=== PATIENT | female | born 1980 | race Two or more races ===

== ENCOUNTER 2020-05-30 11:15 | Inpatient (IN) | payer MEDICAID, OTHER ==
[~2020-05-30] VITALS: Ht 160 cm; Wt 87.6 kg
[2020-05-30] MEDS ORDERED: SODIUM CHLORIDE 0.9% 1,000 ML IV ONE ×2 (11:45)
[2020-05-30 12:01] LABS: Hematocrit 36.6 % (36.0-46.0); Hemoglobin 11.5 g/dL (12.2-16.2); Mean Corpuscular Hemoglobin 21.3 pg (28.0-32.0); Mean Corpuscular Hgb Conc. 31.4 g/dL (32.0-36.0); Red Cell Distribution Width 18.6 % (11.8-14.3)
[2020-05-30 12:02] LABS: Mean Corpuscular Volume 67.7 fL (80.0-100.0); Platelet Count (auto) 120 10^3/uL (140-450); White Blood Cell 10.3 10^3/uL (4.4-10.8)
[2020-05-30 12:05] LABS: Basophils % (manual) 0 (0.0-2.0); Blast Cells 0; Eosinophils % (manual) 0 (0-7); Myelocytes % 0; Promyelocytes % 0
[2020-05-30 12:20] LABS: Albumin 2.6 g/dL (3.4-5.0); Anion Gap 13 (5-15); Blood Urea Nitrogen 18 mg/dL (7-18); Carbon Dioxide 19 mmol/L (21-32); Chloride 101 mmol/L (98-107); Glucose 324 mg/dL (74-106); Potassium 3.1 mmol/L (3.5-5.1); Sodium 133 mmol/L (136-145)
[2020-05-30 12:26] LABS: Alanine Aminotransferase 26 U/L (13-56); Alkaline Phosphatase 414 U/L (45-117); Aspartate Aminotransferase 34 U/L (15-37); BUN/Creatinine Ratio 14.6; Bilirubin, Total 0.5 mg/dL (0.2-1.0); GFR African American 63 mL/min; GFR Non-African American 52 mL/min; Total Protein 7.1 g/dL (6.4-8.2)
[2020-05-30 12:44] LABS: Band Neutrophils % (manual) 24; Lymphocytes % (manual) 3 (10.0-50.0); Metamyelocytes % 2; Monocytes % (manual) 1 (0-12); Reactive Lymphocytes 17
[2020-05-30] MEDS ORDERED: KETOROLAC TROMETH 30 MG/ML 1ML VIAL ONE (14:11)
[2020-05-30] MEDS ORDERED: KETOROLAC TROMETH 30 MG/ML 1ML VIAL IV ONE (14:30)
[2020-05-30] MEDS ORDERED: DexAMETHasone SOD PHOS 10MG/1ML VIAL INJ IV ONE (15:45)
[2020-05-30] MEDS ORDERED: ENOXAPARIN SOD 100 MG/1 ML SYRINGE SC ONE (15:45)
[2020-05-30] MEDS ORDERED: DOXYCYCLINE 100MG/250ML 250 ML IV ONE (15:45)
[2020-05-30] MEDS ORDERED: MORPHINE SULF INJ 2 MG/ML SYRINGE 1ML IV PRN ×2 (16:00→16:15)
[2020-05-30] MEDS ORDERED: NITROGLYCERIN 0.4 MG SL TAB SL PRN ×2 (16:00→16:15)
[2020-05-30] MEDS ORDERED: DEXTROSE (50%) 50ML SYRG IV PRN (16:00)
[2020-05-30] MEDS ORDERED: LACTATED RINGER'S 1,000 ML IV ONE (16:00)
[2020-05-30] MEDS ORDERED: SIMV10TA84 PO (16:02)
[2020-05-30] MEDS ORDERED: GLIP10TA9 PO (16:02)
[2020-05-30] MEDS ORDERED: BENA5TAB5 PO (16:02)
[2020-05-30] MEDS ORDERED: ERGO1CAP12 PO (16:02)
[2020-05-30] MEDS ORDERED: METF-929 PO (16:02)
[2020-05-30] MEDS ORDERED: ONDANSETRON HCL 4 MG/2 ML VIAL IV PRN (16:15)
[2020-05-30] MEDS ORDERED: INFLUENZA QUAD 2020-2021 0.5 ML SYRG IM ONE (16:15)
[2020-05-30] MEDS ORDERED: ALUM & MAG HYDROX-SIMETH LIQ(MAALOX) 30 ML PO PRN (16:15)
[2020-05-30] MEDS ORDERED: PNEUMOCOCCAL VACC POLYS 25 MCG/0.5 ML VIAL IM ONE (16:15)
[2020-05-30] MEDS ORDERED: SODIUM CHLORIDE 0.9% 1,000 ML IV SCH (16:15)
[2020-05-30] MEDS ORDERED: POTASSIUM CHL 20 Meq TABLET PO ONE (16:15)
[2020-05-30] MEDS ORDERED: REMDESIVIR PER PHARMACY 0 ML IV SCH (16:15)
[2020-05-30] MEDS ORDERED: POTASSIUM CHL 20MEQ/100ML 100 ML IV ONE (16:15)
[2020-05-30] MEDS ORDERED: ACETAMINOPHEN 500 MG TAB PO PRN (16:15)
[2020-05-30] MEDS ORDERED: LORazepam 0.5 MG TAB PO PRN (16:15)
[2020-05-30] MEDS ORDERED: IOHEXOL 350 MG/ML 100ML IJ ONE (16:19)
[2020-05-30] MEDS: ACCU-CHEK COMFORT CURVE STRIP VI SCH ×2 (17:00→23:06)
[2020-05-30] MEDS ORDERED: cefTRIAXone 1GM/50ML D5W 50 ML IV ONE ×2 (17:00→17:05)
[2020-05-30] MEDS: InsuLIN REG 1unit/0.01ml Soln (100units/ml) SC SCH ×2 (17:00→23:07)
[2020-05-30] MEDS ORDERED: AZITHROMYCIN 500MG/ 250ML 250 ML IV ONE (18:00)
[2020-05-30] MEDS ORDERED: SODIUM FERR GLUC 62.5MG/5ML 125 MG in SODIUM CHL 0.9% 100 ML IV ONE (20:00)
[2020-05-30] MEDS ORDERED: METOPROLOL TARTRATE 25 MG TAB PO ONE (20:00)
[2020-05-30] MEDS ORDERED: REMDESIVIR 200 MG in NS 210ml LOADING DOSE ADULT IV ONE (21:30)
[2020-05-30] MEDS: ALBUTEROL SULF HFA 90MCG INH 200DOSE IN PRN (21:30)
[2020-05-30] MEDS: BUDESONIDE (INHALATION) 180 MCG IH IN SCH (21:30)
[2020-05-30 21:57] LABS: Basophils # (auto) 0 10 ^3/uL (0-0.2); Basophils % (auto) 0.1 % (0.0-2.0); Eosinophils # (auto) 0 10 ^3/uL (0-0.8); Lymphocytes # (auto) 0.2 10 ^3/uL (0.4-5.4); Lymphocytes % (auto) 1.1 % (10.0-50.0); Neutrophils # (auto) 14.8 10 ^3/uL (1.6-8.6); White Blood Cell 15.3 10^3/uL (4.4-10.8)
[2020-05-30 21:59] LABS: Eosinophils % (auto) 0.2 % (0.0-7.0); Hematocrit 33.4 % (36.0-46.0); Hemoglobin 10.5 g/dL (12.2-16.2); Mean Corpuscular Hemoglobin 21.1 pg (28.0-32.0); Mean Corpuscular Hgb Conc. 31.5 g/dL (32.0-36.0); Monocytes # (auto) 0.2 10 ^3/uL (0-1.3); Monocytes % (auto) 1.6 % (0.0-12.0); Platelet Count (auto) 132 10^3/uL (140-450); Red Blood Cells 4.99 10^6/uL (4.0-5.20); Red Cell Distribution Width 18.5 % (11.8-14.3)
[2020-05-30] MEDS ORDERED: DOXYCYCLINE 100MG/250ML 250 ML IV SCH (22:00)
[2020-05-30 22:14] LABS: Albumin 2.7 g/dL (3.4-5.0); Anion Gap 12 (5-15); Blood Urea Nitrogen 19 mg/dL (7-18); Calcium 7.8 mg/dL (8.5-10.1); Carbon Dioxide 18 mmol/L (21-32); Chloride 104 mmol/L (98-107); Potassium 3.9 mmol/L (3.5-5.1); Sodium 134 mmol/L (136-145)
[2020-05-30 22:17] LABS: Lactic Acid w/Reflex 2.1 mmol/L (0.4-2.0)
[2020-05-30 22:20] LABS: % Iron Saturation 2.8 % (15-50)
[2020-05-30 22:24] LABS: Alanine Aminotransferase 28 U/L (13-56); Alkaline Phosphatase 258 U/L (45-117); Aspartate Aminotransferase 37 U/L (15-37); BUN/Creatinine Ratio 19.6; Bilirubin, Total 0.3 mg/dL (0.2-1.0); GFR African American 83 mL/min; GFR Non-African American 68 mL/min; Glucose 377 mg/dL (74-106); Lactate Dehydrogenase 328 U/L (84-246); Total Protein 7.3 g/dL (6.4-8.2)
[2020-05-30 22:30] LABS: CRP High Sensitivity > 19.0 mg/dL (< 0.3)
[2020-05-30 22:32] LABS: Cholesterol 99 mg/dL (< 200); HDL Cholesterol 31 mg/dL (40-59); LDL Cholesterol 48 mg/dL (< 100); Triglycerides 125 mg/dL (< 150)
[2020-05-30 22:53] LABS: Urine Bacteria MANY /hpf (None Seen); Urine Blood TRACE /uL (Negative); Urine Specific Gravity 1.035 (1.001-1.035); Urine WBC 176 /hpf (0 - 5); Urine WBC Clumps PRESENT /hpf (None Seen)
[2020-05-30 22:58] LABS: Alcohol, Urine < 3.0 mg/dL (0-10); Amphetamine Screen, Urine NEGATIVE (NEGATIVE); Barbiturate Scree,Urine NEGATIVE (NEGATIVE); Benzodiazephine Screen, Urine NEGATIVE (NEGATIVE); Cannabinoid Screen, Urine NEGATIVE (NEGATIVE); Cocaine Screen, Urine NEGATIVE (NEGATIVE); Opiate Scree,Urine NEGATIVE (NEGATIVE); Phencyclidine Screen, Urine NEGATIVE (NEGATIVE)
[2020-05-30 23:05] VITALS: BP 96/63
[2020-05-30] MEDS: ATORVASTATIN 20 MG TAB PO SCH (23:10)
[2020-05-30] MEDS: MORPHINE SULF INJ 2 MG/ML SYRINGE 1ML IV PRN (23:11)
[2020-05-31] MEDS: DOCUSATE SOD 100 MG CAP PO PRN (00:48)
[2020-05-31] MEDS: HYDROcodone-ACET 5/325MG TAB PO PRN (00:48)
[2020-05-31 05:00] VITALS: BP 98/61
[2020-05-31 05:49] LABS: Lymphocytes # (auto) 0.4 10 ^3/uL (0.4-5.4); Monocytes # (auto) 0.4 10 ^3/uL (0-1.3)
[2020-05-31 05:51] LABS: Basophils # (auto) 0.2 10 ^3/uL (0-0.2); Basophils % (auto) 1.1 % (0.0-2.0); Eosinophils # (auto) 0.2 10 ^3/uL (0-0.8); Eosinophils % (auto) 1.5 % (0.0-7.0); Hematocrit 31.9 % (36.0-46.0); Hemoglobin 9.9 g/dL (12.2-16.2); Lymphocytes % (auto) 2.7 % (10.0-50.0); Mean Corpuscular Hemoglobin 20.8 pg (28.0-32.0); Mean Corpuscular Hgb Conc. 31.1 g/dL (32.0-36.0); Monocytes % (auto) 2.7 % (0.0-12.0); Neutrophils # (auto) 12.6 10 ^3/uL (1.6-8.6); Platelet Count (auto) 112 10^3/uL (140-450); Red Blood Cells 4.76 10^6/uL (4.0-5.20); Red Cell Distribution Width 18.4 % (11.8-14.3); White Blood Cell 13.7 10^3/uL (4.4-10.8)
[2020-05-31 06:11] LABS: Potassium 3.7 mmol/L (3.5-5.1)
[2020-05-31 06:20] LABS: Albumin 2.2 g/dL (3.4-5.0); BUN/Creatinine Ratio 23.1; Bilirubin, Total 0.4 mg/dL (0.2-1.0); Calcium 7.4 mg/dL (8.5-10.1); Total Protein 6.6 g/dL (6.4-8.2)
[2020-05-31] MEDS: InsuLIN REG 1unit/0.01ml Soln (100units/ml) SC SCH ×4 (06:27→21:41)
[2020-05-31] MEDS: ACCU-CHEK COMFORT CURVE STRIP VI SCH ×4 (06:27→21:42)
[2020-05-31] MEDS: BUDESONIDE (INHALATION) 180 MCG IH IN SCH ×2 (07:05→20:15)
[2020-05-31] MEDS: ALBUTEROL SULF HFA 90MCG INH 200DOSE IN PRN ×2 (07:05→20:15)
[2020-05-31 09:00] VITALS: BP 107/67
[2020-05-31] MEDS ORDERED: LISINOPRIL 5 MG TAB PO SCH (10:00)
[2020-05-31] MEDS ORDERED: METOPROLOL TARTRATE 25 MG TAB PO SCH (10:00)
[2020-05-31] MEDS: MORPHINE SULF INJ 2 MG/ML SYRINGE 1ML IV PRN ×2 (10:39→17:57)
[2020-05-31] MEDS: DexAMETHasone SOD PHOS 10MG/1ML VIAL INJ IV SCH (10:53)
[2020-05-31] MEDS: ZINC SULFATE 220mg CAP or TAB PO SCH (10:54)
[2020-05-31] MEDS: ASPirin 81 mg TAB PO SCH (10:54)
[2020-05-31] MEDS: CHOLECALCIFEROL (VITD3) 2,000 UNIT CAP PO SCH (10:56)
[2020-05-31] MEDS: ASCORBIC ACID 1,000 MG TAB PO SCH (10:56)
[2020-05-31] MEDS: ENOXAPARIN SOD 100 MG/1 ML SYRINGE SC SCH ×2 (10:57→21:42)
[2020-05-31] MEDS: POTASSIUM CHL 20 Meq TABLET PO SCH (11:00)
[2020-05-31] MEDS ORDERED: REMDESIVIR PER PHARMACY 0 ML IV SCH (11:30)
[2020-05-31 13:00] VITALS: BP 100/60
[2020-05-31] MEDS: SODIUM FERR GLUC 62.5MG/5ML 125 MG in SODIUM CHL 0.9% 100 ML IV SCH (14:54)
[2020-05-31] MEDS: REMDESIVIR 100 MG in SODIUM CHL 0.9% 250 ML IV SCH (16:26)
[2020-05-31 16:47] VITALS: BP 102/62
[2020-05-31] MEDS: cefTRIAXone 1GM/50ML D5W 50 ML IV SCH (20:04)
[2020-05-31 21:00] VITALS: BP 108/61
[2020-05-31] MEDS: AZITHROMYCIN 500MG/ 250ML 250 ML IV SCH (21:41)
[2020-05-31] MEDS: ATORVASTATIN 20 MG TAB PO SCH (21:41)
[2020-05-31] MEDS: INSULIN LANTUS (GLARGINE) 1 /0.01ml (100units/ml) SC SCH (21:42)
[2020-06-01] VITALS (7 sets, daily range): BP systolic 99–116; BP diastolic 68–79
[2020-06-01] MEDS: MORPHINE SULF INJ 2 MG/ML SYRINGE 1ML IV PRN (05:05)
[2020-06-01 05:56] LABS: Basophils # (auto) 0 10 ^3/uL (0-0.2); Basophils % (auto) 0.2 % (0.0-2.0); Eosinophils # (auto) 0 10 ^3/uL (0-0.8); Hemoglobin 10.5 g/dL (12.2-16.2); Lymphocytes # (auto) 0.6 10 ^3/uL (0.4-5.4); Lymphocytes % (auto) 4.2 % (10.0-50.0); Mean Corpuscular Hemoglobin 20.7 pg (28.0-32.0); Mean Corpuscular Hgb Conc. 30.8 g/dL (32.0-36.0); Mean Corpuscular Volume 67.1 fL (80.0-100.0); Monocytes # (auto) 0.9 10 ^3/uL (0-1.3); Monocytes % (auto) 5.8 % (0.0-12.0); Neutrophils # (auto) 13.2 10 ^3/uL (1.6-8.6); Neutrophils % (auto) 89.8 % (37.0-80.0); Platelet Count (auto) 149 10^3/uL (140-450); Red Blood Cells 5.06 10^6/uL (4.0-5.20); Red Cell Distribution Width 19.1 % (11.8-14.3); White Blood Cell 14.7 10^3/uL (4.4-10.8)
[2020-06-01 05:59] LABS: Lactic Acid w/Reflex 2.8 mmol/L (0.4-2.0)
[2020-06-01] MEDS: ACCU-CHEK COMFORT CURVE STRIP VI SCH ×4 (06:17→21:42)
[2020-06-01 06:18] LABS: Calcium 7.8 mg/dL (8.5-10.1); Potassium 3.4 mmol/L (3.5-5.1)
[2020-06-01] MEDS: INSULIN LANTUS (GLARGINE) 1 /0.01ml (100units/ml) SC SCH ×2 (06:26→21:38)
[2020-06-01] MEDS: InsuLIN REG 1unit/0.01ml Soln (100units/ml) SC SCH ×4 (06:27→21:36)
[2020-06-01] MEDS: DexAMETHasone SOD PHOS 10MG/1ML VIAL INJ IV SCH (09:24)
[2020-06-01] MEDS: ENOXAPARIN SOD 100 MG/1 ML SYRINGE SC SCH ×2 (09:25→21:25)
[2020-06-01] MEDS: ASPirin 81 mg TAB PO SCH (09:26)
[2020-06-01] MEDS: CHOLECALCIFEROL (VITD3) 2,000 UNIT CAP PO SCH (09:26)
[2020-06-01] MEDS: POTASSIUM CHL 20 Meq TABLET PO SCH (09:26)
[2020-06-01] MEDS: HYDROcodone-ACET 5/325MG TAB PO PRN (09:28)
[2020-06-01] MEDS: LISINOPRIL 5 MG TAB PO SCH (09:28)
[2020-06-01] MEDS: ZINC SULFATE 220mg CAP or TAB PO SCH (09:28)
[2020-06-01] MEDS: ASCORBIC ACID 1,000 MG TAB PO SCH (09:29)
[2020-06-01] MEDS: BUDESONIDE (INHALATION) 180 MCG IH IN SCH ×2 (10:00→19:08)
[2020-06-01] MEDS ORDERED: POTASSIUM CHL 20 Meq TABLET PO ONE (12:45)
[2020-06-01] MEDS ORDERED: SODIUM CHLORIDE 0.9% 1,000 ML IV ONE (12:45)
[2020-06-01] MEDS: SODIUM FERR GLUC 62.5MG/5ML 125 MG in SODIUM CHL 0.9% 100 ML IV SCH (13:10)
[2020-06-01] MEDS: REMDESIVIR 100 MG in SODIUM CHL 0.9% 250 ML IV SCH (17:13)
[2020-06-01] MEDS: ALBUTEROL SULF HFA 90MCG INH 200DOSE IN PRN (19:08)
[2020-06-01] MEDS: cefTRIAXone 1GM/50ML D5W 50 ML IV SCH (20:30)
[2020-06-01] MEDS: AZITHROMYCIN 500MG/ 250ML 250 ML IV SCH (21:25)
[2020-06-01] MEDS: ATORVASTATIN 20 MG TAB PO SCH (21:25)
[2020-06-02] MEDS: MORPHINE SULF INJ 2 MG/ML SYRINGE 1ML IV PRN (04:30)
[2020-06-02 05:00] VITALS: BP 108/74
[2020-06-02] MEDS: InsuLIN REG 1unit/0.01ml Soln (100units/ml) SC SCH ×4 (06:21→21:44)
[2020-06-02] MEDS: ALBUTEROL SULF HFA 90MCG INH 200DOSE IN PRN ×2 (06:22→22:49)
[2020-06-02] MEDS: ACCU-CHEK COMFORT CURVE STRIP VI SCH ×4 (06:22→21:45)
[2020-06-02] MEDS: BUDESONIDE (INHALATION) 180 MCG IH IN SCH ×2 (06:22→21:26)
[2020-06-02] MEDS: INSULIN LANTUS (GLARGINE) 1 /0.01ml (100units/ml) SC SCH ×2 (06:22→21:45)
[2020-06-02 06:36] LABS: Red Blood Cells 4.58 10^6/uL (4.0-5.20); White Blood Cell 8.3 10^3/uL (4.4-10.8)
[2020-06-02 06:39] LABS: Hematocrit 30.3 % (36.0-46.0); Hemoglobin 9.6 g/dL (12.2-16.2); Mean Corpuscular Hgb Conc. 31.7 g/dL (32.0-36.0); Mean Corpuscular Volume 66.2 fL (80.0-100.0); Platelet Count (auto) 146 10^3/uL (140-450); Red Cell Distribution Width 18.8 % (11.8-14.3)
[2020-06-02 06:46] LABS: Basophils % (manual) 0 (0.0-2.0); Blast Cells 0; Eosinophils % (manual) 0 (0-7); Myelocytes % 0; Promyelocytes % 0; Reactive Lymphocytes 0
[2020-06-02 08:00] VITALS: BP 110/72
[2020-06-02 08:23] LABS: Alanine Aminotransferase 28 U/L (13-56); Alkaline Phosphatase 244 U/L (45-117); Anion Gap 7 (5-15); Aspartate Aminotransferase 31 U/L (15-37); BUN/Creatinine Ratio 26.1; Bilirubin, Total 0.2 mg/dL (0.2-1.0); Blood Urea Nitrogen 12 mg/dL (7-18); Calcium 7.4 mg/dL (8.5-10.1); Carbon Dioxide 21 mmol/L (21-32); Chloride 109 mmol/L (98-107); GFR African American 196 mL/min; GFR Non-African American 162 mL/min; Glucose 198 mg/dL (74-106); Potassium 3.9 mmol/L (3.5-5.1); Sodium 137 mmol/L (136-145); Total Protein 6.4 g/dL (6.4-8.2)
[2020-06-02 08:24] LABS: Albumin 2.1 g/dL (3.4-5.0)
[2020-06-02] MEDS: DexAMETHasone SOD PHOS 10MG/1ML VIAL INJ IV SCH (09:10)
[2020-06-02] MEDS: CHOLECALCIFEROL (VITD3) 2,000 UNIT CAP PO SCH (09:11)
[2020-06-02] MEDS: ZINC SULFATE 220mg CAP or TAB PO SCH (09:11)
[2020-06-02] MEDS: POTASSIUM CHL 20 Meq TABLET PO SCH (09:11)
[2020-06-02] MEDS: ASPirin 81 mg TAB PO SCH (09:11)
[2020-06-02] MEDS: ASCORBIC ACID 1,000 MG TAB PO SCH (09:11)
[2020-06-02] MEDS: ENOXAPARIN SOD 100 MG/1 ML SYRINGE SC SCH ×2 (09:12→21:45)
[2020-06-02] MEDS: LISINOPRIL 5 MG TAB PO SCH (09:12)
[2020-06-02 11:48] LABS: Band Neutrophils % (manual) 5; Lymphocytes % (manual) 8 (10.0-50.0); Metamyelocytes % 1; Monocytes % (manual) 8 (0-12)
[2020-06-02 12:00] VITALS: BP 112/75
[2020-06-02] MEDS: SODIUM FERR GLUC 62.5MG/5ML 125 MG in SODIUM CHL 0.9% 100 ML IV SCH (12:16)
[2020-06-02] MEDS ORDERED: POLYETHYLENE GLYCOL 17 GM PWDR PO ONE (12:45)
[2020-06-02] MEDS: REMDESIVIR 100 MG in SODIUM CHL 0.9% 250 ML IV SCH (15:52)
[2020-06-02 17:00] VITALS: BP 116/73
[2020-06-02] MEDS: cefTRIAXone 1GM/50ML D5W 50 ML IV SCH (20:28)
[2020-06-02 21:20] VITALS: BP 121/74
[2020-06-02] MEDS: AZITHROMYCIN 500MG/ 250ML 250 ML IV SCH (21:43)
[2020-06-02] MEDS: ATORVASTATIN 20 MG TAB PO SCH (21:43)
[2020-06-02] MEDS: HYDROcodone-ACET 5/325MG TAB PO PRN (22:02)
[2020-06-03 05:00] VITALS: BP_SYST 113; BP_SYST 123; BP_DIAS 72; BP_DIAS 78
[2020-06-03 05:44] LABS: Hematocrit 32.5 % (36.0-46.0); Hemoglobin 10.1 g/dL (12.2-16.2); Mean Corpuscular Hemoglobin 20.9 pg (28.0-32.0); Mean Corpuscular Hgb Conc. 31.2 g/dL (32.0-36.0); Mean Corpuscular Volume 66.8 fL (80.0-100.0); Platelet Count (auto) 238 10^3/uL (140-450); Red Blood Cells 4.86 10^6/uL (4.0-5.20); Red Cell Distribution Width 18.7 % (11.8-14.3); White Blood Cell 9.9 10^3/uL (4.4-10.8)
[2020-06-03 05:46] LABS: Basophils % (manual) 0 (0.0-2.0); Blast Cells 0; Eosinophils % (manual) 0 (0-7); Metamyelocytes % 0; Myelocytes % 0; Promyelocytes % 0; Reactive Lymphocytes 0
[2020-06-03] MEDS: ACCU-CHEK COMFORT CURVE STRIP VI SCH ×4 (05:58→22:05)
[2020-06-03] MEDS: INSULIN LANTUS (GLARGINE) 1 /0.01ml (100units/ml) SC SCH ×2 (06:00→22:13)
[2020-06-03] MEDS: InsuLIN REG 1unit/0.01ml Soln (100units/ml) SC SCH ×4 (06:00→22:13)
[2020-06-03 06:31] LABS: Band Neutrophils % (manual) 9; Lymphocytes % (manual) 13 (10.0-50.0); Monocytes % (manual) 8 (0-12)
[2020-06-03] MEDS: BUDESONIDE (INHALATION) 180 MCG IH IN SCH ×2 (07:35→21:48)
[2020-06-03] MEDS: ALBUTEROL SULF HFA 90MCG INH 200DOSE IN PRN (07:35)
[2020-06-03] MEDS: DexAMETHasone SOD PHOS 10MG/1ML VIAL INJ IV SCH (08:48)
[2020-06-03] MEDS: ASPirin 81 mg TAB PO SCH (08:48)
[2020-06-03] MEDS: CHOLECALCIFEROL (VITD3) 2,000 UNIT CAP PO SCH (08:49)
[2020-06-03] MEDS: POTASSIUM CHL 20 Meq TABLET PO SCH (08:49)
[2020-06-03] MEDS: ASCORBIC ACID 1,000 MG TAB PO SCH (08:49)
[2020-06-03] MEDS: ZINC SULFATE 220mg CAP or TAB PO SCH (08:49)
[2020-06-03] MEDS: ENOXAPARIN SOD 100 MG/1 ML SYRINGE SC SCH ×2 (08:49→22:05)
[2020-06-03] MEDS: MORPHINE SULF INJ 2 MG/ML SYRINGE 1ML IV PRN ×2 (08:50→22:21)
[2020-06-03 09:00] VITALS: BP 108/72
[2020-06-03] MEDS: LISINOPRIL 5 MG TAB PO SCH (10:00)
[2020-06-03] MEDS: SODIUM FERR GLUC 62.5MG/5ML 125 MG in SODIUM CHL 0.9% 100 ML IV SCH (12:44)
[2020-06-03 13:00] VITALS: BP 106/66
[2020-06-03 15:47] LABS: Albumin 2.3 g/dL (3.4-5.0); Calcium 7.6 mg/dL (8.5-10.1); Potassium 4.7 mmol/L (3.5-5.1)
[2020-06-03 15:51] LABS: BUN/Creatinine Ratio 19.7
[2020-06-03 15:52] LABS: Bilirubin, Total 0.3 mg/dL (0.2-1.0); Total Protein 6.3 g/dL (6.4-8.2)
[2020-06-03] MEDS: REMDESIVIR 100 MG in SODIUM CHL 0.9% 250 ML IV SCH (16:10)
[2020-06-03 17:00] VITALS: BP 119/77
[2020-06-03] MEDS: cefTRIAXone 1GM/50ML D5W 50 ML IV SCH (20:40)
[2020-06-03 22:00] VITALS: BP 117/79
[2020-06-03] MEDS: AZITHROMYCIN 500MG/ 250ML 250 ML IV SCH (22:04)
[2020-06-03] MEDS: ATORVASTATIN 20 MG TAB PO SCH (22:05)
[2020-06-04 05:00] VITALS: BP 104/58
[2020-06-04] MEDS: ACCU-CHEK COMFORT CURVE STRIP VI SCH ×4 (06:01→21:12)
[2020-06-04] MEDS: InsuLIN REG 1unit/0.01ml Soln (100units/ml) SC SCH ×4 (06:06→21:14)
[2020-06-04] MEDS: INSULIN LANTUS (GLARGINE) 1 /0.01ml (100units/ml) SC SCH ×2 (06:08→21:14)
[2020-06-04] MEDS: BUDESONIDE (INHALATION) 180 MCG IH IN SCH ×2 (07:51→22:17)
[2020-06-04] MEDS: ALBUTEROL SULF HFA 90MCG INH 200DOSE IN PRN ×2 (07:51→19:48)
[2020-06-04 08:00] VITALS: BP 109/65
[2020-06-04] MEDS: HYDROcodone-ACET 5/325MG TAB PO PRN ×2 (08:48→20:28)
[2020-06-04] MEDS: ASPirin 81 mg TAB PO SCH (10:34)
[2020-06-04] MEDS: DexAMETHasone SOD PHOS 10MG/1ML VIAL INJ IV SCH (10:34)
[2020-06-04] MEDS: ZINC SULFATE 220mg CAP or TAB PO SCH (10:35)
[2020-06-04] MEDS: POTASSIUM CHL 20 Meq TABLET PO SCH (10:35)
[2020-06-04] MEDS: ASCORBIC ACID 1,000 MG TAB PO SCH (10:37)
[2020-06-04] MEDS: CHOLECALCIFEROL (VITD3) 2,000 UNIT CAP PO SCH (10:37)
[2020-06-04] MEDS: LISINOPRIL 5 MG TAB PO SCH (10:38)
[2020-06-04] MEDS: ENOXAPARIN SOD 100 MG/1 ML SYRINGE SC SCH ×2 (10:38→21:36)
[2020-06-04 12:00] VITALS: BP 103/64
[2020-06-04] MEDS: SODIUM FERR GLUC 62.5MG/5ML 125 MG in SODIUM CHL 0.9% 100 ML IV SCH (13:18)
[2020-06-04 17:00] VITALS: BP 107/65
[2020-06-04] MEDS: cefTRIAXone 1GM/50ML D5W 50 ML IV SCH (21:35)
[2020-06-04] MEDS: ATORVASTATIN 20 MG TAB PO SCH (21:36)
[2020-06-04] MEDS: AZITHROMYCIN 500MG/ 250ML 250 ML IV SCH (21:36)
[2020-06-04] MEDS: DOCUSATE SOD 100 MG CAP PO PRN (21:37)
[2020-06-04 22:00] VITALS: BP 106/61
[2020-06-04] MEDS: MORPHINE SULF INJ 2 MG/ML SYRINGE 1ML IV PRN (23:13)
[2020-06-05 05:00] VITALS: BP 105/71
[2020-06-05] MEDS: ACCU-CHEK COMFORT CURVE STRIP VI SCH ×4 (06:12→22:00)
[2020-06-05] MEDS: InsuLIN REG 1unit/0.01ml Soln (100units/ml) SC SCH ×4 (06:15→22:30)
[2020-06-05] MEDS: INSULIN LANTUS (GLARGINE) 1 /0.01ml (100units/ml) SC SCH ×2 (06:16→22:00)
[2020-06-05] MEDS: ALBUTEROL SULF HFA 90MCG INH 200DOSE IN PRN (07:15)
[2020-06-05] MEDS: BUDESONIDE (INHALATION) 180 MCG IH IN SCH ×2 (07:15→22:00)
[2020-06-05] MEDS: ASCORBIC ACID 1,000 MG TAB PO SCH (10:45)
[2020-06-05] MEDS: ZINC SULFATE 220mg CAP or TAB PO SCH (10:45)
[2020-06-05] MEDS: ASPirin 81 mg TAB PO SCH (10:45)
[2020-06-05] MEDS: CHOLECALCIFEROL (VITD3) 2,000 UNIT CAP PO SCH (10:45)
[2020-06-05] MEDS: DexAMETHasone SOD PHOS 10MG/1ML VIAL INJ IV SCH (10:45)
[2020-06-05] MEDS: LISINOPRIL 5 MG TAB PO SCH (10:45)
[2020-06-05] MEDS: ENOXAPARIN SOD 100 MG/1 ML SYRINGE SC SCH ×2 (10:45→22:00)
[2020-06-05] MEDS: SODIUM FERR GLUC 62.5MG/5ML 125 MG in SODIUM CHL 0.9% 100 ML IV SCH (12:00)
[2020-06-05 18:00] VITALS: BP 107/68
[2020-06-05] MEDS: MORPHINE SULF INJ 2 MG/ML SYRINGE 1ML IV PRN (20:25)
[2020-06-05] MEDS: cefTRIAXone 1GM/50ML D5W 50 ML IV SCH (20:42)
[2020-06-05 21:47] VITALS: BP 106/61
[2020-06-05] MEDS: AZITHROMYCIN 500MG/ 250ML 250 ML IV SCH (22:25)
[2020-06-05] MEDS: ATORVASTATIN 20 MG TAB PO SCH (22:25)
[2020-06-06 05:00] VITALS: BP 113/72
[2020-06-06] MEDS: ACCU-CHEK COMFORT CURVE STRIP VI SCH ×2 (06:21→12:39)
[2020-06-06] MEDS: InsuLIN REG 1unit/0.01ml Soln (100units/ml) SC SCH ×2 (06:22→12:43)
[2020-06-06] MEDS: INSULIN LANTUS (GLARGINE) 1 /0.01ml (100units/ml) SC SCH (06:22)
[2020-06-06 09:03] VITALS: BP 114/68
[2020-06-06] MEDS: CHOLECALCIFEROL (VITD3) 2,000 UNIT CAP PO SCH (09:27)
[2020-06-06] MEDS: DexAMETHasone SOD PHOS 10MG/1ML VIAL INJ IV SCH (09:27)
[2020-06-06] MEDS: ZINC SULFATE 220mg CAP or TAB PO SCH (09:27)
[2020-06-06] MEDS: ASPirin 81 mg TAB PO SCH (09:27)
[2020-06-06] MEDS: ASCORBIC ACID 1,000 MG TAB PO SCH (09:28)
[2020-06-06] MEDS: LISINOPRIL 5 MG TAB PO SCH (09:28)
[2020-06-06] MEDS: ENOXAPARIN SOD 100 MG/1 ML SYRINGE SC SCH (09:29)
[2020-06-06] MEDS: BUDESONIDE (INHALATION) 180 MCG IH IN SCH (10:00)
[2020-06-06] MEDS: ALBUTEROL SULF HFA 90MCG INH 200DOSE IN PRN (10:43)
[2020-06-06] MEDS: SODIUM FERR GLUC 62.5MG/5ML 125 MG in SODIUM CHL 0.9% 100 ML IV SCH (12:39)
[2020-06-06 13:54] VITALS: BP 118/58
[2020-06-06 15:52] VITALS: BP 118/58
== END 2020-06-06 17:07 | disposition home or self-care (01) | DRG 137 ==
LOC: ER 11:15 → TELE 11:16 → TELE-CENTR 22:29 → TELE-EAST 06-05 18:05
PROVIDERS: ADMIT Hospitalist; ATTEND Internal Medicine
PROC: XW033E5 Introduction of Remdesivir Anti-infective into Peripheral Vein, Percutaneous Approach, New Technology Group 5 (ICD-10-PCS; 2020-05-31)
PROC: XW13325 Transfusion of Convalescent Plasma (Nonautologous) into Peripheral Vein, Percutaneous Approach, New Technology Group 5 (ICD-10-PCS; principal; 2020-06-01)
DX: U07.1 COVID-19 (principal); J12.89 Other viral pneumonia; J96.00 Acute respiratory failure, unspecified whether with hypoxia or hypercapnia; E43 Unspecified severe protein-calorie malnutrition; E11.65 Type 2 diabetes mellitus with hyperglycemia; D69.6 Thrombocytopenia, unspecified; E66.01 Morbid (severe) obesity due to excess calories; E87.1 Hypo-osmolality and hyponatremia; D50.9 Iron deficiency anemia, unspecified; E87.6 Hypokalemia; E11.40 Type 2 diabetes mellitus with diabetic neuropathy, unspecified; E87.2 Acidosis; N30.90 Cystitis, unspecified without hematuria; N12 Tubulo-interstitial nephritis, not specified as acute or chronic; E11.22 Type 2 diabetes mellitus with diabetic chronic kidney disease; E78.5 Hyperlipidemia, unspecified; E55.9 Vitamin D deficiency, unspecified; N18.30 Chronic kidney disease, stage 3 unspecified; I12.9 Hypertensive chronic kidney disease with stage 1 through stage 4 chronic kidney disease, or unspecified chronic kidney disease; Z79.4 Long term (current) use of insulin; R79.89 Other specified abnormal findings of blood chemistry; Z68.34 Body mass index [BMI] 34.0-34.9, adult; Q27.9 Congenital malformation of peripheral vascular system, unspecified; N17.9 Acute kidney failure, unspecified
CPT/HCPCS: 36415; 36600; 70450; 71045; 71260; 74177; 76856; 80048; 80053; 80061; 80307; 81001; 82270; 82306; 82728; 82805; 82962; 83036; 83540; 83550; 83605; 83615; 83735; 84439; 84443; 84484; 85007; 85025; 85027; 85379; 86141; 86850; 86900; 86901; 87040; 87086; 87426; 93970; 94640; G0378; J0696; J1100; J1815; J1885; J2405; J3480; J3490